=== PATIENT | male | born 1970 | race Caucasian/White ===

== ENCOUNTER 2016-11-15 11:03 | Emergency (ER) | payer OTHER ==
[2016-11-15] MEDS ORDERED: PEPCID IV ONE ×2 (11:04→11:10)
[2016-11-15 12:07] LABS: Basophils % (Auto) 0.4 % (0.0-1.8); Eosinophils % (Auto) 2.3 % (0.0-4.3); Hematocrit 49.3 % (35.5-45.6); Hemoglobin 16.9 gm/dl (11.8-15.2); Mean Corpuscular HGB Conc 34 % (32-34); Mean Corpuscular Hemoglobin 29 pg (28-32); Mean Corpuscular Volume 85 fl (84-94); Platelet Count 282 K/mm3 (140-440); Red Blood Count 5.82 M/mm3 (3.65-5.03); Red Cell Distribution Width 13.9 % (13.2-15.2); White Blood Count 12.5 K/mm3 (4.5-11.0)
[2016-11-15 12:29] LABS: Anion Gap 18 mmol/L; BUN/Creatinine Ratio 11.11; Blood Urea Nitrogen 10 mg/dL (9-20); Calcium 8.4 mg/dL (8.4-10.2); Carbon Dioxide 25 mmol/L (22-30); Chloride 102.1 mmol/L (98-107); Glucose 184 mg/dL (75-100); Potassium 3.6 mmol/L (3.6-5.0); Sodium 141 mmol/L (137-145)
--- NOTE | 2016-11-15 12:41 | Emergency Department Report ---
HPI - General Chief Complaint: Allergic Reaction Time Seen by Provider: 11/15/16 11:28 - HPI HPI: This is a 46-year-old male who presents to the emergency department with complaint of a possible allergic reaction. 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 He started noticing swelling of the arms, redness, shortness of breath, feeling very hot and sweaty. He does not have any known food, environmental or medicinal allergies. EMS was called and he was given epinephrine, 50 mg of Benadryl, and a nebulizer treatment. Patient was found to have some low room air oxygen was placed on a nonrebreather. Patient says he is feeling much better at this point. He otherwise has a history of high cholesterol. He sees a primary care physician through [place]. No recent travel or sick contacts at home. ED Past Medical Hx - Past Medical History Additional medical history: high cholesterol - Surgical History Past Surgical History?: No - Social History Smoking Status: Never Smoker Substance Use Type: None - Medications Home Medications: Home Medications Medication Instructions Recorded Confirmed Last Taken Type EPINEPHrine [Epipen 2-Cruzito] 0.3 mg IM PRN PRN #1 box 11/15/16 Unknown Rx Famotidine [Pepcid] 20 mg PO BID #10 tablet 11/15/16 Unknown Rx predniSONE [Deltasone] 20 mg PO BID #10 tab 11/15/16 Unknown Rx ED Review of Systems ROS: Stated complaint: ALLERGIC REACTION Other details as noted in HPI Comment: All other systems reviewed and negative Constitutional: denies: chills, fever Eyes: denies: eye pain, eye discharge, vision change ENT: denies: ear pain, throat pain Respiratory: shortness of breath. denies: cough Cardiovascular: edema. denies: chest pain Gastrointestinal: denies: abdominal pain, nausea, diarrhea Genitourinary: denies: urgency, dysuria Musculoskeletal: denies: back pain, joint swelling, arthralgia Skin: rash, change in color Neurological: denies: headache, weakness, paresthesias Physical Exam - Physical Exam Vital Signs: Vital Signs 11/15/16 11/15/16 11/15/16 10:52 11:05 11:14 Temperature 98.1 F Pulse Rate 90 73 Respiratory 14 12 14 Rate Blood Pressure 151/77 O2 Sat by Pulse 88 99 97 Oximetry 11/15/16 11/15/16 11/15/16 11:15 11:30 11:45 Temperature Pulse Rate 85 84 81 Respiratory 13 19 22 Rate Blood Pressure 134/81 133/84 137/77 O2 Sat by Pulse 98 97 95 Oximetry 11/15/16 12:00 Temperature Pulse Rate 81 Respiratory 14 Rate Blood Pressure 125/69 O2 Sat by Pulse 96 Oximetry Physical Exam: GENERAL: The patient is well-developed well-nourished. HEENT: Normocephalic. Atraumatic. Extraocular motions are intact. Patient has moist mucous membranes. Pupils equal reactive to light bilaterally. Mallampati of 2. No drooling or trismus. NECK: Supple. Trachea is midline. CHEST/LUNGS: Clear to auscultation. There is no respiratory distress noted. HEART/CARDIOVASCULAR: Regular. There is no tachycardia. There is no gallop rub or murmur. ABDOMEN: Abdomen is soft, nontender. Patient has normal bowel sounds. There is no abdominal distention. SKIN: Skin is warm and dry. NEURO: The patient is awake, alert, and oriented. The patient is cooperative. The patient has no focal neurologic deficits. The patient has normal speech. MUSCULOSKELETAL: There is no tenderness or deformity. There is no limitation range of motion. There is no evidence of acute injury. ED Course Vital Signs 11/15/16 11/15/16 11/15/16 10:52 11:05 11:14 Temperature 98.1 F Pulse Rate 90 73 Respiratory 14 12 14 Rate Blood Pressure 151/77 O2 Sat by Pulse 88 99 97 Oximetry 11/15/16 11/15/16 11/15/16 11:15 11:30 11:45 Temperature Pulse Rate 85 84 81 Respiratory 13 19 22 Rate Blood Pressure 134/81 133/84 137/77 O2 Sat by Pulse 98 97 95 Oximetry 11/15/16 12:00 Temperature Pulse Rate 81 Respiratory 14 Rate Blood Pressure 125/69 O2 Sat by Pulse 96 Oximetry ED Medical Decision Making - Lab Data Result diagrams: 11/15/16 11:54 11/15/16 11:54 - Medical Decision Making 46-year-old male presents to the emergency department by EMS after having what appears to be some type of allergic reaction. The shortness of breath, rash, swelling that he complained of has all resolved upon presentation. Patient was reevaluated multiple times over multiple hours and there has not been any recurrence of his symptoms. Labs are unremarkable. He appears safe for discharge home at this time. He will be prescribed EpiPen, a few days of steroids and Pepcid, and he will use Benadryl as necessary. He will return to the ER with any worsening of his symptoms or any acute distress. - Differential Diagnosis allergic reaction, angioedema, dermatitis Critical Care Time: No Critical care attestation.: If time is entered above; I have spent that time in minutes in the direct care of this critically ill patient, excluding procedure time. ED Disposition Clinical Impression: Allergic reaction Qualifiers: Encounter type: initial encounter Qualified Code(s): T78.40XA - Allergy, unspecified, initial encounter Disposition: DC-01 TO HOME OR SELFCARE Is pt being admited?: No Condition: Good Instructions: Urticaria (ED), Anaphylaxis (ED) Additional Instructions: Please follow-up with your primary care doctor in the next few days. You may need to see an check and transfer beader to figure out what she might be allergic to. I prescribed do an EpiPen to be used if he develop any swelling of the tongue or throat, any respiratory distress. If you have to use the EpiPen, you should call 911 or come into the emergency department immediately. Return to the emergency Department anyways with any worsening of her symptoms or any acute distress. Prescriptions: EPINEPHrine [Epipen 2-Cruzito] 0.3 mg IM PRN PRN #1 box PRN Reason: Anaphylaxis Famotidine [Pepcid] 20 mg PO BID #10 tablet predniSONE [Deltasone] 20 mg PO BID #10 tab Referrals: PRIMARY CARE, [Primary Care Provider] - VIK[facility]
[2016-11-15 15:04] VITALS: BP 111/66
== END 2016-11-15 15:04 | disposition home or self-care (01) ==
LOC: ED 11:03
DX: T78.40XA Allergy, unspecified, initial encounter (principal); E78.00 Pure hypercholesterolemia, unspecified
CPT/HCPCS: 36415; 80048; 84443; 85025; 93005; 93010; 96374; 96375; 99284; J2930